=== PATIENT | female | born 1980 | race Caucasian/White ===

== ENCOUNTER 2021-11-23 16:39 | Emergency (ER) | payer BC, MEDICARE ==
[~2021-11-23] VITALS: Ht 157.5 cm; Wt 88.2 kg
[2021-11-23 17:10] VITALS: TEMP 102.6
[2021-11-23 17:40] LABS: BASO # 0.1 K/mm3 (0.0-0.2); BASO % 0.7 % (0.0-2.0); EOS # 0.1 K/mm3 (0.0-0.7); EOS % 1.1 % (0.0-4.0); GRAN # 5.5 K/mm3 (1.4-6.5); GRAN % 71.8 % (42.2-75.2); HEMATOCRIT 38.5 % (37.0-47.0); LYMPH # 0.7 K/mm3 (1.2-3.4); LYMPH % 9.6 % (20.0-51.0); MEAN CELL VOLUME 86 fl (80.0-100.0); MEAN CORPUSCULAR HEMOGLOBIN 29 pg (27-31); MEAN CORPUSCULAR HGB CONC 34 g/dl (33.0-37.0); MEAN PLATELET VOLUME 8.7 fl (7.4-10.4); MONO # 1.2 K/mm3 (0.1-0.6); MONO % 15.9 % (1.7-9.3); PLATELET COUNT 285 K/mm3 (130-400); RED BLOOD COUNT 4.47 M/mm3 (4.10-5.30); REDCELL DISTRIBUTION WIDTH-CV 13.3 % (11.5-14.5)
[2021-11-23 17:52] LABS: ALBUMIN 3.5 gm/dL (3.5-5.0); BILIRUBIN,TOTAL 0.2 mg/dL (0.2-1.2); C-REACTIVE PROTEIN 6.55 mg/dL (0.00-0.50); CALCIUM 9.1 mg/dL (8.4-10.2); CREATININE, serum 0.72 mg/dL (0.57-1.11); POTASSIUM 3.8 mmol/L (3.5-4.5); TOTAL PROTEIN 7.7 gm/dL (6.2-8.1)
[2021-11-23 19:46] VITALS: BP 153/75; PULSE 80
== END 2021-11-23 19:55 | disposition home or self-care (01) ==
LOC: COL.ER 16:39
PROVIDERS: Nurse Practitioner
DX: U07.1 COVID-19 (principal); L08.9 Local infection of the skin and subcutaneous tissue, unspecified; I50.9 Heart failure, unspecified; I11.0 Hypertensive heart disease with heart failure; E11.9 Type 2 diabetes mellitus without complications
CPT/HCPCS: J7030